=== PATIENT | female | born 1940 | race Caucasian/White ===

== ENCOUNTER 2016-06-24 14:22 | Observation (INO) | payer OTHER ==
[~2016-06-24] VITALS: Ht 154.9 cm; Wt 60.1 kg
[2016-06-24 15:00] VITALS: BP 163/54
[2016-06-24 15:59] LABS: BASO % 1 % (0-3); EOS % 6 % (0-3); HEMATOCRIT 22.9 % (36.0-47.0); HEMOGLOBIN 7.3 g/dL (12.0-15.5); LYMPH # 1.1 x10^3/uL (1.0-4.8); LYMPH % 16 % (24-48); MEAN CORPUSCULAR HEMOGLOBIN 31 pg (25-35); MEAN CORPUSCULAR HGB CONC 32 g/dL (31-37); MEAN CORPUSCULAR VOLUME 96 fL (79-100); MONO % 7 % (0-9); NEUT % 71 % (31-73); PLATELET COUNT 125 x10^3/uL (140-400); RED CELL DISTRIBUTION WIDTH 17.4 % (11.5-14.5); WHITE BLOOD COUNT 6.6 x10^3/uL (4.0-11.0)
[2016-06-24] MEDS ORDERED: CLOP75TA PO (16:37)
[2016-06-24] MEDS ORDERED: FELO10TA PO (16:39)
[2016-06-24] MEDS ORDERED: SIMV80TA PO (16:39)
[2016-06-24] MEDS ORDERED: LISI10TA2 PO (16:40)
[2016-06-24] MEDS ORDERED: FLUT9.9S NS (16:40)
[2016-06-24] MEDS ORDERED: CARV25TA PO (16:40)
[2016-06-24] MEDS ORDERED: LISI40TA PO (16:45)
[2016-06-24] MEDS ORDERED: FOLI0.8T3 PO (16:45)
[2016-06-24] MEDS ORDERED: FURO40TA4 PO (16:52)
[2016-06-24] MEDS ORDERED: CALCIUM CARBONATE 500 MG TAB.CHEW PO PRN (18:30)
[2016-06-24 19:40] VITALS: BP 167/51
[2016-06-24] MEDS ORDERED: ATORVASTATIN CALCIUM 40 MG TABLET. PO SCH (21:00)
[2016-06-24] MEDS: CARVEDILOL 12.5 MG TABLET. PO SCH (21:00)
[2016-06-24 23:25] VITALS: BP 147/45
[2016-06-25 03:50] VITALS: BP 165/50
[2016-06-25 07:00] VITALS: BP 122/77
[2016-06-25] MEDS ORDERED: FOLIC/VIT B COMP W-C (RENAL) TABLET. PO SCH (09:00)
[2016-06-25] MEDS ORDERED: FLUTICASONE 50MCG/NASAL SPRAY 16GM BOTTLE. NS SCH (09:00)
[2016-06-25] MEDS ORDERED: CLOPIDOGREL BISULFATE 75 MG TABLET PO SCH (09:00)
[2016-06-25] MEDS ORDERED: AMLODIPINE BESYLATE 10 MG TABLET. PO SCH (09:00)
[2016-06-25] MEDS ORDERED: LISINOPRIL 40 MG TABLET. PO SCH (09:00)
--- NOTE | 2016-06-25 12:48 | PDOC ---
PROGRESS NOTES Subjective Subjective SEEN FOR ESRD AND ANEMIA Objective Objective Vital Signs Date Time Temp Pulse Resp B/P Pulse Ox O2 Delivery O2 Flow Rate FiO2 06/25/16 08:00 Room Air 06/25/16 07:00 97.8 68 16 122/77 100 2.0 97.8 Intake and Output 06/25/16 07:00 Intake Total 240 ml Balance 240 ml Intake Oral 240 ml # Voids 2 # Bowel Movements 1 Physical Exam Abdomen: Normal bowel sounds, Soft, No tenderness, No hepatosplenomegaly, No masses Heart: Regular rate, Normal S1, Normal S2, No murmurs, Gallops Extremities: No clubbing, No cyanosis, No edema, Normal pulses, No tenderness/ swelling General: Alert, Oriented X3, Cooperative, No acute distress Lungs: Clear to auscultation, Normal air movement Psych/Mental Status: Mental status NL, Mood NL Diagnosis RENAL FAILURE: ESRD ANEMIA: Chronic diseases (ESRD) Assessment Assessment Problems Medical Problems: (1) ESRD (end stage renal disease) on dialysis Status: Acute (2) Symptomatic anemia Status: Acute Plan Plan of Care SEEN ON DIALYSIS AND TOLERATING WELL. GETTING 2 UNITS RBC. HOME POST DIALYSIS Comment Review of Relevant I have reviewed the following items juan c (where applicable) has been applied. Labs Laboratory Tests Test 06/24/16 15:40 06/24/16 16:33 06/24/16 20:37 06/25/16 07:16 White Blood Count 6.6x10^3/uL (4.0-11.0) Red Blood Count 2.40x10^6/uL (3.50-5.40) Hemoglobin 7.3g/dL (12.0-15.5) Hematocrit 22.9% (36.0-47.0) Mean Corpuscular Volume 96fL (79-100) Mean Corpuscular Hemoglobin 31pg (25-35) Mean Corpuscular Hemoglobin Concent 32g/dL (31-37) Red Cell Distribution Width 17.4% (11.5-14.5) Platelet Count 125x10^3/uL (140-400) Neutrophils (%) (Auto) 71% (31-73) Lymphocytes (%) (Auto) 16% (24-48) Monocytes (%) (Auto) 7% (0-9) Eosinophils (%) (Auto) 6% (0-3) Basophils (%) (Auto) 1% (0-3) Neutrophils # (Auto) 4.6x10^3uL (1.8-7.7) Lymphocytes # (Auto) 1.1x10^3/uL (1.0-4.8) Monocytes # (Auto) 0.5x10^3/uL (0.0-1.1) Eosinophils # (Auto) 0.4x10^3/uL (0.0-0.7) Basophils # (Auto) 0.0x10^3/uL (0.0-0.2) Glucose (Fingerstick) 111mg/dL (70-99) 143mg/dL (70-99) 83mg/dL (70-99) Laboratory Tests Test 06/24/16 15:40 06/24/16 16:33 06/24/16 20:37 06/25/16 07:16 White Blood Count 6.6x10^3/uL (4.0-11.0) Red Blood Count 2.40x10^6/uL (3.50-5.40) Hemoglobin 7.3g/dL (12.0-15.5) Hematocrit 22.9% (36.0-47.0) Mean Corpuscular Volume 96fL (79-100) Mean Corpuscular Hemoglobin 31pg (25-35) Mean Corpuscular Hemoglobin Concent 32g/dL (31-37) Red Cell Distribution Width 17.4% (11.5-14.5) Platelet Count 125x10^3/uL (140-400) Neutrophils (%) (Auto) 71% (31-73) Lymphocytes (%) (Auto) 16% (24-48) Monocytes (%) (Auto) 7% (0-9) Eosinophils (%) (Auto) 6% (0-3) Basophils (%) (Auto) 1% (0-3) Neutrophils # (Auto) 4.6x10^3uL (1.8-7.7) Lymphocytes # (Auto) 1.1x10^3/uL (1.0-4.8) Monocytes # (Auto) 0.5x10^3/uL (0.0-1.1) Eosinophils # (Auto) 0.4x10^3/uL (0.0-0.7) Basophils # (Auto) 0.0x10^3/uL (0.0-0.2) Glucose (Fingerstick) 111mg/dL (70-99) 143mg/dL (70-99) 83mg/dL (70-99) Medications Current Medications Calcium Carbonate/ Glycine (Tums) 500 mg PRN Q3HRS PRN PO UPSET STOMACH; Start 06/24/16 at 18:30 Clopidogrel Bisulfate (Plavix) 75 mg DAILY PO ; Start 06/25/16 at 09:00 Vitamin B Complex/ Vitamin C (Sarah-Stefania) 1 tab DAILY PO ; Start 06/25/16 at 09: 00 Lisinopril (Prinivil) 40 mg DAILY PO ; Start 06/25/16 at 09:00 Carvedilol (Coreg) 25 mg BIDWMEALS PO Last administered on 06/24/16 21:00; Start 06/24/16 at 19:00 Amlodipine Besylate (Norvasc) 10 mg DAILY PO ; Start 06/25/16 at 09:00 Fluticasone Propionate (Flonase) 2 spray DAILY NS ; Start 06/25/16 at 09:00 Atorvastatin Calcium (Lipitor) 40 mg QHS PO Last administered on 06/24/16 21: 00; Start 06/24/16 at 21:00 Active Scripts Active Reported Furosemide 40 Mg Tablet 1 Tab PO 5XDAY Nephro-Stefania Tablet (Folic Acid/Vitamin B Comp W-C) 0.8 Mg Tablet 1 Tab PO DAILY Lisinopril 40 Mg Tablet 1 Tab PO DAILY Flonase Allergy Relief (Fluticasone Propionate) 9.9 Ml E[place].susp 2 Sprays NS PRN DAILY Coreg (Carvedilol) 25 Mg Tablet 1 Tab PO BID Felodipine Er (Felodipine) 10 Mg Tab.er.24h 1 Tab PO DAILY Zocor (Simvastatin) 80 Mg Tablet 1 Tab PO DAILY Clopidogrel (Clopidogrel Bisulfate) 75 Mg Tablet 1 Tab PO DAILY Vitals/I & O Vital Sign - Last 24 Hours 06/24/16 06/24/16 06/24/16 06/24/16 15:00 15:00 15:46 19:40 Temp 98.6 98.6 98.8 98.6 98.6 98.8 Pulse 80 80 85 Resp 20 20 16 B/P 163/54 163/54 167/51 Pulse Ox 95 95 90 O2 Delivery Room Air Room Air Room Air Room Air 06/24/16 06/24/16 06/24/16 06/25/16 20:00 21:00 23:25 03:50 Temp 98.1 97.9 98.1 97.9 Pulse 85 74 67 Resp 16 16 B/P 167/51 147/45 165/50 Pulse Ox 93 100 O2 Delivery Room Air Room Air Room Air 06/25/16 06/25/16 07:00 08:00 Temp 97.8 97.8 Pulse 68 Resp 16 B/P 122/77 Pulse Ox 100 O2 Delivery Nasal Cannula Room Air O2 Flow Rate 2.0 Intake and Output 06/24/16 06/24/16 06/25/16 15:00 23:00 07:00 Intake Total 240 ml 0 ml Balance 240 ml 0 ml MEET BARTHOLOMEW MD Jun 25, 2016 12:48
[2016-06-25] MEDS: CARVEDILOL 12.5 MG TABLET. PO SCH (14:42)
[2016-06-25 14:44] VITALS: BP 183/60
[2016-06-25 15:00] VITALS: BP 172/63
--- NOTE | 2016-06-25 18:24 | PDOC ---
PROGRESS NOTES Chief Complaint Chief Complaint cc: weakness A/P Weakness, acute on chronic anemia, HD Patient Plan HD today receiving 2 units of PRBC Anticipated DC after HD, Follow up with PCP and Nephrology at OR Vitals Vitals Vital Signs Date Time Temp Pulse Resp B/P Pulse Ox O2 Delivery O2 Flow Rate FiO2 06/25/16 15:00 98.0 75 16 172/63 95 Room Air 98.0 06/25/16 07:00 2.0 Physical Exam General: Alert, Oriented X3, Cooperative, No acute distress Heart: Regular rate, Normal S1, Normal S2, No murmurs, Gallops Abdomen: Normal bowel sounds, Soft, No tenderness, No hepatosplenomegaly, No masses Extremities: No clubbing, No cyanosis, No edema, Normal pulses, No tenderness/ swelling Labs LABS Laboratory Tests Test 06/24/16 20:37 06/25/16 07:16 Glucose (Fingerstick) 143mg/dL (70-99) 83mg/dL (70-99) Assessment and Plan Assessmemt and Plan Problems Medical Problems: (1) ESRD (end stage renal disease) on dialysis Status: Acute (2) Symptomatic anemia Status: Acute Problems: Comment Review of Relevant I have reviewed the following items juan c (where applicable) has been applied. Labs Laboratory Tests Test 06/24/16 15:40 06/24/16 16:33 06/24/16 20:37 06/25/16 07:16 White Blood Count 6.6x10^3/uL (4.0-11.0) Red Blood Count 2.40x10^6/uL (3.50-5.40) Hemoglobin 7.3g/dL (12.0-15.5) Hematocrit 22.9% (36.0-47.0) Mean Corpuscular Volume 96fL (79-100) Mean Corpuscular Hemoglobin 31pg (25-35) Mean Corpuscular Hemoglobin Concent 32g/dL (31-37) Red Cell Distribution Width 17.4% (11.5-14.5) Platelet Count 125x10^3/uL (140-400) Neutrophils (%) (Auto) 71% (31-73) Lymphocytes (%) (Auto) 16% (24-48) Monocytes (%) (Auto) 7% (0-9) Eosinophils (%) (Auto) 6% (0-3) Basophils (%) (Auto) 1% (0-3) Neutrophils # (Auto) 4.6x10^3uL (1.8-7.7) Lymphocytes # (Auto) 1.1x10^3/uL (1.0-4.8) Monocytes # (Auto) 0.5x10^3/uL (0.0-1.1) Eosinophils # (Auto) 0.4x10^3/uL (0.0-0.7) Basophils # (Auto) 0.0x10^3/uL (0.0-0.2) Glucose (Fingerstick) 111mg/dL (70-99) 143mg/dL (70-99) 83mg/dL (70-99) Laboratory Tests Test 06/24/16 20:37 06/25/16 07:16 Glucose (Fingerstick) 143mg/dL (70-99) 83mg/dL (70-99) Medications Current Medications Calcium Carbonate/ Glycine (Tums) 500 mg PRN Q3HRS PRN PO UPSET STOMACH; Start 06/24/16 at 18:30 Clopidogrel Bisulfate (Plavix) 75 mg DAILY PO Last administered on 06/25/16 14 :42; Start 06/25/16 at 09:00 Vitamin B Complex/ Vitamin C (Sarah-Stefania) 1 tab DAILY PO Last administered on 14:42; Start 06/25/16 at 09:00 Lisinopril (Prinivil) 40 mg DAILY PO Last administered on 06/25/16 14:43; Start 06/25/16 at 09:00 Carvedilol (Coreg) 25 mg BIDWMEALS PO Last administered on 06/25/16 14:42; Start 06/24/16 at 19:00 Amlodipine Besylate (Norvasc) 10 mg DAILY PO Last administered on 06/25/16 14: 43; Start 06/25/16 at 09:00 Fluticasone Propionate (Flonase) 2 spray DAILY NS ; Start 06/25/16 at 09:00 Atorvastatin Calcium (Lipitor) 40 mg QHS PO Last administered on 06/24/16 21: 00; Start 06/24/16 at 21:00 Active Scripts Active Reported Furosemide 40 Mg Tablet 1 Tab PO 5XDAY Nephro-Stefania Tablet (Folic Acid/Vitamin B Comp W-C) 0.8 Mg Tablet 1 Tab PO DAILY Lisinopril 40 Mg Tablet 1 Tab PO DAILY Flonase Allergy Relief (Fluticasone Propionate) 9.9 Ml [place].susp 2 Sprays NS PRN DAILY Coreg (Carvedilol) 25 Mg Tablet 1 Tab PO BID Felodipine Er (Felodipine) 10 Mg Tab.er.24h 1 Tab PO DAILY Zocor (Simvastatin) 80 Mg Tablet 1 Tab PO DAILY Clopidogrel (Clopidogrel Bisulfate) 75 Mg Tablet 1 Tab PO DAILY Vitals/I & O Vital Sign - Last 24 Hours 06/24/16 06/24/16 06/24/16 06/24/16 19:40 20:00 21:00 23:25 Temp 98.8 98.1 98.8 98.1 Pulse 85 85 74 Resp 16 16 B/P 167/51 167/51 147/45 Pulse Ox 90 93 O2 Delivery Room Air Room Air Room Air 06/25/16 06/25/16 06/25/16 06/25/16 03:50 07:00 08:00 14:42 Temp 97.9 97.8 97.9 97.8 Pulse 67 68 72 Resp 16 16 B/P 165/50 122/77 183/60 Pulse Ox 100 100 O2 Delivery Room Air Nasal Cannula Room Air O2 Flow Rate 2.0 06/25/16 06/25/16 06/25/16 06/25/16 14:43 14:43 14:44 15:00 Temp 98.0 98.0 Pulse 72 72 72 75 Resp 16 B/P 183/60 183/60 183/60 172/63 Pulse Ox 95 O2 Delivery Room Air Intake and Output 06/24/16 06/24/16 06/25/16 15:00 23:00 07:00 Intake Total 240 ml 0 ml Balance 240 ml 0 ml MANISH POOL MD Jun 25, 2016 18:24
--- NOTE | 2016-06-26 10:21 | CONS ---
DATE OF CONSULTATION: REQUESTING PHYSICIAN: Hospitalist. REASON FOR CONSULTATION: Renal failure with anemia. HISTORY OF PRESENT ILLNESS: A 76-year-old female with history of end-stage renal disease, hemodialysis dependent. She is currently admitted with anemia, needed transfusion of packed-red blood cells. She is status post recent cardiac surgery. She has been on supplemental oxygen at home and been weaned off the same. We did reduce the ____ transfused packed red blood cells following a hemoglobin at the dialysis facility which was ____. She currently has no chest pain. She has had acute dyspnea on exertion. PAST MEDICAL HISTORY: Hypertension, end-stage renal disease, hemodialysis dependent, ischemic cardiomyopathy secondary to hyperparathyroidism, renal disease, anemia of chronic kidney disease and vascular access placement. ALLERGIES: SULFA. MEDICATIONS: Reviewed. FAMILY HISTORY: Noncontributory. SOCIAL HISTORY: The patient ____ brother. REVIEW OF SYSTEMS: No headaches, sinus problem, nasal drainage, epistaxis, change in vision or hearing. No difficulty swallowing. No fever, chills, cough, sputum production, or hemoptysis. No chest pain, states that shortness of breath and dyspnea on exertion. No abdominal pain or upper or lower gastrointestinal blood loss. No nausea, vomiting, diarrhea, seizures or malignancies. PHYSICAL EXAMINATION: GENERAL: The patient awake, conversant, and appropriate. THROAT: Clear. NECK: No increased JVD, no thyromegaly, mass or adenopathy. LUNGS: Decreased breath sound at bases. CARDIAC: Without S3 or rub. ABDOMEN: Soft, nontender, no bruits. EXTREMITIES: Without edema. NEUROLOGIC: Nonfocal localizing. PSYCHIATRIC: Good attention to detail, appropriate affect. LABORATORY DATA: Hemoglobin 73, hematocrit 22.9. IMPRESSION: 1. End-stage renal disease, hemodialysis dependent. 2. Anemia of chronic kidney disease and recent blood loss related to surgical intervention. RECOMMENDATIONS: Proceed with dialysis. The patient is currently on dialysis, receiving 2 units of packed-red blood cells. ____ discharge home, following the same. MEET BARTHOLOMEW MD DR: JACOB/mariama JOB#: [id number] / [id number]
--- NOTE | 2016-06-27 04:12 | HP ---
ADMIT DATE: 06/24/2016 CHIEF COMPLAINT: Symptomatic anemia. HISTORY OF PRESENT ILLNESS: The patient is a 76-year-old woman, who has end-stage renal disease presumably secondary to lupus which was never treated, but apparently diagnosed in the 80s. She was noted by her tunnel heading inspector, Dr. Leblanc yesterday to have a significant anemia which was symptomatically with dyspnea on exertion and easy fatigue. Hemoglobin at 6.4 prompted referral for a transfusion. Because of her recent heart history with valve replacement as well as pacer placement, she was referred to the hospital to receive transfusions with dialysis tomorrow. PAST MEDICAL HISTORY: End-stage renal disease, on dialysis since 2009; lupus, never treated; arrhythmia, status post pacer placement; valvular disease, the patient believes valve got replaced, but does not know any specifics, Dr. Allison is her dustless operator; diabetes mellitus, off medications since 2009, diet controlled; and hypertension. FAMILY HISTORY: No other family members with kidney disease, diabetes or hypertension. Multiple sisters and brothers with cancer including two sisters with breast cancer. Her daughter also was found positive with a genetic cancer trait. SOCIAL HISTORY: The patient currently lives with her son and [id number], quit smoking in 1993. No alcohol or drug use. ALLERGIES: SULFA. MEDICATIONS: MAR reconciled with home medications. REVIEW OF SYSTEMS: Positive for generalized fatigue, dyspnea on exertion. Denies any headaches or dizziness. Denies any chest pain or shortness of breath. Rest of organ system review is negative as well. PHYSICAL EXAMINATION: VITAL SIGNS: From today show a blood pressure of 163/54, heart rate of 80, respiratory rate at 20. She is afebrile. GENERAL: This is a 76-year-old well-nourished, pale-appearing, woman, alert and oriented, in no acute distress, very pleasant. HEENT: Shows no scleral icterus. Conjunctivae are pale. Oral mucosa is pink and moist. NECK: Supple. LUNGS: Clear. CARDIOVASCULAR: Heart has regular rate and rhythm with faint murmur. LUNGS: Clear. ABDOMEN: Has positive bowel sounds, soft, nontender. EXTREMITIES: Show no edema. SKIN: Warm, soft and dry. Of note, pacer is placed in the right upper chest with brown yellowish hematoma surrounding and on top. LABORATORY DATA: CBC with a WBC of 6.6, hemoglobin 7.3, platelets of 125. Chemistries with a blood sugar of 111. ASSESSMENT AND PLAN: The patient is a 76-year-old woman with symptomatic anemia, who is now admitted to receive a blood transfusion with dialysis, planned for tomorrow. Nephrology will be consulted to arrange dialysis. Type and cross will be drawn and ready for tomorrow. We will continue all her heart medications. Her Lasix regimen is somewhat peculiar as it is given 5 times a day. However, as this is only on off dialysis, they will hold off for now, in anticipation of no further complications, we will plan on discharge on 06/25/2016. DISCHARGE DATE: 06/25/2016. DISCHARGE DIAGNOSES: Symptomatic anemia, end-stage renal disease. DISCHARGE DISPOSITION: To home. DISCHARGE CONDITION: Improved. DISCHARGE MEDICATIONS: Resume prior home medications. DISCHARGE INSTRUCTIONS: The patient will follow up with her tunnel heading inspector, Dr. Leblanc as well as her dustless operator, Dr. Allison as previously arranged. She will see her primary care physician, Dr. Dean Dean in 1-2 weeks. KEYA HOBBS MD DR: FILIBERTO/nts JOB#: [id number] / [id number] MEET Penn MD, DEAN TERRY MD
--- NOTE | 2016-07-04 09:46 | DS ---
DATE OF DISCHARGE: 06/25/2016 DISCHARGE DIAGNOSES: 1. Weakness due to anemia, acute on chronic. 2. Hemodialysis patient. BRIEF HOSPITAL COURSE: This 76-year-old female patient admitted to the hospital directly from hemodialysis as per Dr. Leblanc's request due to severe anemia. During hospitalization, she received two units of PRBC and her hemoglobin has been improving and also the patient is asymptomatic. At the time of discharge, the patient deemed clinically stable to go home and followup with primary care doctor. DISCHARGE EXAM: Please see my progress note. DISCHARGE CONDITION: Stable. DIET: Renal. FOLLOWUP: With Dr. Leblanc and primary care doctor. Total time spent for discharge is 32 minutes for patient education, counseling and coordination of care. MANISH POOL MD DR: BUSTER/mariama JOB#: [id number] / [id number]
== END 2016-06-25 16:45 | disposition home or self-care (01) ==
LOC: 6 SOUTH 14:31
PROVIDERS: ADMIT Internal Medicine Hematology & Oncology; ATTEND Internal Medicine Hematology & Oncology
DX: D63.1 Anemia in chronic kidney disease (principal); E11.22 Type 2 diabetes mellitus with diabetic chronic kidney disease; I12.0 Hypertensive chronic kidney disease with stage 5 chronic kidney disease or end stage renal disease; N18.6 End stage renal disease; E21.3 Hyperparathyroidism, unspecified; I25.5 Ischemic cardiomyopathy; Z95.2 Presence of prosthetic heart valve; Z99.2 Dependence on renal dialysis; Z80.3 Family history of malignant neoplasm of breast
CPT/HCPCS: 36415; 36430; 82947; 85027; 86850; 86900; 86901; 86920; G0378; G0379; P9016